=== PATIENT | female | born 1985 | race African-American/Black ===

== ENCOUNTER 2020-07-22 22:12 | Emergency (ER) | payer OTHER ==
[2020-07-22] MEDS ORDERED: NORMAL SALINE 1000 ML 1,000 ML IV ONE (22:47)
--- NOTE | 2020-07-22 22:48 | ER Document Report ---
ED General - General Chief Complaint: Probable Seizure Stated Complaint: POSSIBLE SEIZURE Time Seen by Provider: 07/22/20 22:34 Primary Care Provider: JARED DON MD [ACTIVE STAFF] - Follow up in 3-5 days Notes: Patient is a 35-year-old female that comes emergency department for chief complaint of tightness sensation in her chest with shortness of breath. She states that she gets a weird sensation washing over herself and she feels tingling in her body intermittently as well. She states that she suddenly got nauseated and vomited a couple times as well. She states she has not eaten much over hydrated well in the past day or so because she was "too busy". She denies passing out, specific chest pain, fever, cough, lower extremity swelling, recent travel or surgery. She denies smoking. She denies history of blood clots. She comes by EMS, EMS reports that she was convulsing as if she was having a seizure but then would speak to them when they addressed her. Patient denies daily medications, diagnosed medical history, or any past medical history except "some kind of abdominal surgery as an ". - Related Data Allergies/Adverse Reactions: acetaminophen [From Tylenol-Codeine #3] Allergy (Intermediate, Verified 07/22/20 23:06) Urticaria codeine [From Tylenol-Codeine #3] Allergy (Intermediate, Verified 07/22/20 23:06) Urticaria Past Medical History - General Information source: Patient - Social History Smoking Status: Never Smoker Frequency of alcohol use: None Drug Abuse: Marijuana Lives with: Friend Family History: Reviewed & Not Pertinent - Medical History Medical History: Negative Surgical Hx: Negative - Immunizations Immunizations up to date: Yes Hx Diphtheria, Pertussis, Tetanus Vaccination: Yes Review of Systems - Review of Systems Constitutional: See HPI EENT: No symptoms reported Cardiovascular: See HPI Respiratory: See HPI Gastrointestinal: No symptoms reported Genitourinary: No symptoms reported Female Genitourinary: No symptoms reported Musculoskeletal: No symptoms reported Skin: No symptoms reported Hematologic/Lymphatic: No symptoms reported Neurological/Psychological: See HPI Physical Exam - Vital signs Vitals: Resp Pulse Ox 18 100 07/22/20 22:32 07/22/20 22:32 - Notes Notes: GENERAL: Initially patient remained with her eyes closed and would not interact, however as I began to engage with her she began to be interactive. Alert and well-appearing otherwise. HEAD: Normocephalic, atraumatic. EYES: Pupils equal, round, and reactive to light. Extraocular movements intact. ENT: Oral mucosa moist, tongue midline. Oropharynx unremarkable. Airway patent. NECK: Full range of motion. Supple. Trachea midline. No lymphadenopathy. LUNGS: Clear to auscultation bilaterally, no wheezes, rales, or rhonchi. No respiratory distress. Non-tender chest wall. HEART: Tachycardic, normal rhythm, no murmur ABDOMEN: Soft, non-tender. Non-distended. EXTREMITIES: Moves all 4 extremities spontaneously. No edema, normal radial and dorsalis pedis pulses bilaterally. No cyanosis. BACK: no cervical, thoracic, lumbar midline tenderness. No saddle anesthesia, normal distal neurovascular exam. Moves all extremities in full range of motion. NEUROLOGICAL: Alert and oriented x3. Normal speech. Cranial nerves II through XII grossly intact. Strength 5/5 in all extremities. PSYCH: Patient intermittently talks in extremely low tones and disengages from the conversation, however when directly engaged she will reengage. Otherwise unremarkable. SKIN: Warm, dry, normal turgor. No rashes or lesions noted. Course - Re-evaluation Re-evalutation: Patient initially difficult historian, she had her eyes closed and she would speak in low tones, however as I engaged her she became more engaged, then she started answering questions normally. She has no signs of distress. She is tachycardic on exam but her examination is otherwise unremarkable. CBC, chemistry unremarkable, troponin negative, urinalysis unremarkable, urine drug screen shows marijuana but otherwise unremarkable. Chest x-ray unremarkable. EKG nonspecific. D-dimer is also negative. After IV fluids tachycardia resolved, on my reevaluation heart rate is now in the 80s. Troponin cycled and unchanged, still in negative range and downtrending. Because of the range I did discuss with Dr. Caraballo. No additional recommendations, patient can be discharged to follow-up with cardiology with return precautions. Heart score is less than 3. Low suspicion of pulmonary embolism based on her positive fluids, negative D-dimer, lack of current symptoms. Patient states she will follow-up with cardiology, states he understands return precautions, stable and well-appearing at time of discharge. - Vital Signs Vital signs: Temp Pulse Resp BP Pulse Ox 97.8 F 15 119/79 99 07/22/20 22:45 07/23/20 04:01 07/23/20 04:00 07/23/20 04:00 - Laboratory Result Diagrams: 07/22/20 23:44 07/22/20 23:44 Laboratory results interpreted by me: 07/22/20 07/22/20 07/23/20 23:44 23:44 00:50 Hgb 11.6 L Hct 35.9 L MCH 26.8 L RDW 14.3 H Sodium 136.2 L Glucose 112 H Urine Glucose (UA) 50 H - EKG Interpretation by Me Additional EKG results interpreted by me: EKG shows sinus tachycardia at a rate of 102, QTc 449, first-degree heart block with RI interval noted, no T wave inversions or ST segment changes in consecut kristan leads Discharge - Discharge Clinical Impression: Shortness of breath, Chest tightness Condition: Stable Disposition: HOME, SELF-CARE Instructions: Anxiety (OM) Additional Instructions: Your work-up today does not show any concerning findings. Please follow-up with the cardiology referral and with your primary care for additional monitoring and testing in regards to your symptoms. Come back if you worsen including chest pain, passing out, difficulty breathing, fever, or any other concerning or worsening symptoms. Referrals: JARED DON MD [ACTIVE STAFF] - Follow up in 3-5 days
--- NOTE | 2020-07-22 23:17 | RADIOLOGY REPORT (SQ) ---
EXAM DESCRIPTION: XR CHEST 1 VIEW COMPLETED DATE/TME: 07/22/2020 22:47 CLINICAL HISTORY: shortness of breath COMPARISON: None. FINDINGS: Single frontal radiograph view of the chest. Cardiomediastinal silhouette: Normal size and contour. Lungs: No consolidation, pneumothorax, or pleural effusion. Bones: No acute osseous abnormality. Leads overlie the chest. Upper abdomen: No abnormality identified. IMPRESSION: 1. No acute pulmonary process identified.
[2020-07-22 23:58] LABS: ABSOLUTE EOSINOPHILS # (AUTO) 0.1 10^3/uL (0.0-0.6); ABSOLUTE LYMPHOCYTES (AUTO) 1.5 10^3/uL (0.5-4.7); ABSOLUTE MONOCYTES (AUTO) 0.6 10^3/uL (0.1-1.4); ABSOLUTE NEUT (AUTO) 5.1 10^3/uL (1.7-8.2); BASOPHILS % (AUTO) 0.6 % (0-2); HEMATOCRIT 35.9 % (36.0-47.0); HEMOGLOBIN 11.6 g/dL (12.0-15.5); LYMPHOCYTES % (AUTO) 19.8 % (13-45); MEAN CORPUSCULAR HEMOGLOBIN 26.8 pg (27.0-33.4); MEAN CORPUSCULAR HGB CONC 32.4 g/dL (32.0-36.0); MEAN CORPUSCULAR VOLUME 83 fl (80-97); MONOCYTES % (AUTO) 7.7 % (3-13); PLATELET COUNT 300 10^3/uL (150-450); RED BLOOD COUNT 4.34 10^6/uL (3.72-5.28); RED CELL DISTRIBUTION WIDTH 14.3 % (11.5-14.0); SEGMENTED NEUTROPHILS % (AUTO) 69.9 % (42-78); TOTAL CELLS COUNTED % (AUTO) 100 %; WHITE BLOOD COUNT 7.4 10^3/uL (4.0-10.5)
[2020-07-23 00:19] LABS: ALBUMIN 4.4 g/dL (3.5-5.0); ALKALINE PHOSPHATASE 100 U/L (38-126); ANION GAP 9 (5-19); ASPARTATE AMINO TRANSFERASE 23 U/L (14-36); BILIRUBIN,DIRECT 0.2 mg/dL (0.0-0.4); BILIRUBIN,TOTAL 0.6 mg/dL (0.2-1.3); BLOOD UREA NITROGEN 9 mg/dL (7-20); CALCIUM 10.2 mg/dL (8.4-10.2); CARBON DIOXIDE 27 mmol/L (22-30); CHLORIDE 100 mmol/L (98-107); GLUCOSE 112 mg/dL (75-110); POTASSIUM 3.8 mmol/L (3.6-5.0); TOTAL PROTEIN 7.6 g/dL (6.3-8.2)
[2020-07-23 01:12] LABS: APPEARANCE,URINE CLEAR; BILIRUBIN,URINE NEGATIVE (NEGATIVE); COLOR,URINE YELLOW; GLUCOSE, URINE 50 mg/dL (NEGATIVE); KETONES,URINE NEGATIVE (NEGATIVE); LEUKOCYTE ESTERASE,URINE NEGATIVE (NEGATIVE); NITRITE,URINE NEGATIVE (NEGATIVE); PROTEIN,URINE NEGATIVE (NEGATIVE); URINE SPECIFIC GRAVITY 1.008; UROBILINOGEN,URINE NEGATIVE mg/dL (<2.0)
[2020-07-23 02:16] LABS: URINE AMPHETAMINES SCREEN NEGATIVE; URINE BARBITURATES SCREEN NEGATIVE; URINE BENZODIAZEPINES SCREEN NEGATIVE; URINE COCAINE SCREEN NEGATIVE; URINE METHADONE SCREEN NEGATIVE; URINE PHENCYCLIDINE SCREEN NEGATIVE
[2020-07-23 02:17] LABS: URINE MARIJUANA (THC) SCREEN UNCONFIRMED POSITIVE
[2020-07-23 04:07] VITALS: BP 119/79
--- NOTE | 2020-07-23 08:50 | EKG REPORT ---
SEVERITY:- ABNORMAL ECG - SINUS TACHYCARDIA FIRST DEGREE AV BLOCK PROBABLE LEFT ATRIAL ABNORMALITY NONSPECIFIC ST-T CHANGES , DIFFUSE : Confirmed by: Kenneth Blake MD 23-Jul-2020 08:50:00
== END 2020-07-23 04:15 | disposition home or self-care (01) ==
LOC: ER 22:12
DX: R07.89 Other chest pain (principal); R06.02 Shortness of breath; R00.0 Tachycardia, unspecified; R20.2 Paresthesia of skin; R11.2 Nausea with vomiting, unspecified; F12.10 Cannabis abuse, uncomplicated; Z88.8 Allergy status to other drugs, medicaments and biological substances; Z88.6 Allergy status to analgesic agent; Z88.5 Allergy status to narcotic agent
CPT/HCPCS: 93005; 99285; 96360; 96361; 36415; 84703; 85025; 80053; 81001; 84484; 80307; 85379; 71045; 93010; J7030

== ENCOUNTER 2020-10-04 08:35 | Emergency (ER) | payer OTHER ==
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
[2020-10-04] MEDS ORDERED: ACETAMINOPHEN 325 MG TABLET PO ONE (09:13)
[2020-10-04] MEDS ORDERED: IBUPROFEN 600 MG TABLET PO ONE (09:13)
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
--- NOTE | 2020-10-04 10:02 | RADIOLOGY REPORT (SQ) ---
EXAM DESCRIPTION: ELBOW LEFT OVER 2 VIEWS IMAGES COMPLETED DATE/TIME: 10/04/2020 9:45 am REASON FOR STUDY: INJURY COMPARISON: None. NUMBER OF VIEWS: Four views. TECHNIQUE: AP, lateral, and both oblique radiographic images acquired of the left elbow. LIMITATIONS: None. FINDINGS: MINERALIZATION: Normal. BONES: No acute fracture or dislocation. JOINT: No effusion. SOFT TISSUES: No soft tissue swelling or radiopaque foreign body. OTHER: No other findings. IMPRESSION: No acute osseous abnormality of the left elbow. TECHNICAL DOCUMENTATION: JOB ID: [id number] [employer]- All Rights Reserved Reading location - IP/workstation name: [email or web address]
[2020-10-04 10:23] VITALS: BP 144/94
== END 2020-10-04 10:18 | disposition home or self-care (01) ==
LOC: ER 08:35
DX: R07.9 Chest pain, unspecified (principal); M25.531 Pain in right wrist; M25.522 Pain in left elbow; M25.562 Pain in left knee; V87.7XXA Person injured in collision between other specified motor vehicles (traffic), initial encounter; I10 Essential (primary) hypertension; Z88.6 Allergy status to analgesic agent
CPT/HCPCS: 71046; 99284